=== PATIENT | female | born 1965 | race Caucasian/White ===

== ENCOUNTER → 2016-06-11 | Outpatient (CLI) | payer BC ==
[2016-06-11 07:48] LABS: Basophils # (A) 0.2 k/uL (0-0.2); Basophils % (A) 3 %; CH 29.9; CHCM 32.6; Eosinophils # (A) 0.1 k/uL (0-0.7); Eosinophils % (A) 2 %; HCT 39.7 % (34.0-46.0); HDW 2.15; HGB 12.9 gm/dL (11.4-16.0); Luc # (Auto) 0.23; Luc % (Auto) 4; Lymphocytes # (A) 2.6 k/uL (1.0-4.8); Lymphocytes % (A) 39 %; MCH 29.8 pg (25.0-35.0); MCHC 32.3 g/dL (31.0-37.0); MCV 92.1 fL (80.0-100.0); Mean Platelet Volume 7.4; Monocytes # (A) 0.3 k/uL (0-1.0); Monocytes % (A) 4 %; Neutrophils # (A) 3.2 k/uL (1.3-7.7); Neutrophils % (A) 48 %; RBC 4.32 m/uL (3.80-5.40); RDW 12.9 % (11.5-15.5); WBC 6.7 k/uL (3.8-10.6)
[2016-06-11 10:19] LABS: ALT 49 U/L (9-52); AST 26 U/L (14-36); Alkaline Phosphatase 71 U/L (38-126); Anion Gap 8 mmol/L; Blood Urea Nitrogen 18 mg/dL (7-17); Calcium 9.7 mg/dL (8.4-10.2); Carbon Dioxide 30 mmol/L (22-30); Chloride 105 mmol/L (98-107); Cholesterol 210 mg/dL (<200); Glucose 101 mg/dL (74-99); HDL Cholesterol 40 mg/dL (40-60); Non-African American GFR(MDRD) 58 (>60 ml/min/1.73 sqM); Potassium 4.5 mmol/L (3.5-5.1); Sodium 143 mmol/L (137-145); Total Bilirubin 0.5 mg/dL (0.2-1.3); Total Protein 7.2 g/dL (6.3-8.2); Triglycerides 113 mg/dL (<150)
== END ==
LOC: LABWHC1 07:08
PROVIDERS: ATTEND Internal Medicine
DX: E03.9 Hypothyroidism, unspecified (principal); I10 Essential (primary) hypertension; E78.2 Mixed hyperlipidemia
CPT/HCPCS: 36415; 80053; 80061; 84439; 84443; 84481; 85025; 86141

== ENCOUNTER → 2016-11-29 | Outpatient (CLI) | payer BC ==
[2016-11-29 10:19] LABS: ALT 55 U/L (9-52); AST 25 U/L (14-36); Alkaline Phosphatase 76 U/L (38-126); Anion Gap 8 mmol/L; Blood Urea Nitrogen 16 mg/dL (7-17); Calcium 9.6 mg/dL (8.4-10.2); Carbon Dioxide 28 mmol/L (22-30); Chloride 104 mmol/L (98-107); Cholesterol 193 mg/dL (<200); Glucose 101 mg/dL (74-99); HDL Cholesterol 29 mg/dL (40-60); Non-African American GFR(MDRD) >60 (>60 ml/min/1.73 sqM); Potassium 4.9 mmol/L (3.5-5.1); Sodium 140 mmol/L (137-145); Total Bilirubin 0.2 mg/dL (0.2-1.3); Total Protein 6.7 g/dL (6.3-8.2)
== END | disposition home or self-care (01) ==
LOC: LABWHC1 07:38
PROVIDERS: ATTEND Internal Medicine
DX: Z00.00 Encounter for general adult medical examination without abnormal findings (principal); E03.9 Hypothyroidism, unspecified; E78.4 Other hyperlipidemia; I10 Essential (primary) hypertension
CPT/HCPCS: 36415; 80053; 80061; 84443; 84481

== ENCOUNTER → 2017-05-31 | Outpatient (CLI) | payer BC ==
[2017-05-31 11:29] LABS: ALT 37 U/L (9-52); AST 25 U/L (14-36); Albumin 4.2 g/dL (3.5-5.0); Alkaline Phosphatase 73 U/L (38-126); Anion Gap 9 mmol/L; Blood Urea Nitrogen 12 mg/dL (7-17); Calcium 9.8 mg/dL (8.4-10.2); Carbon Dioxide 30 mmol/L (22-30); Chloride 103 mmol/L (98-107); Glucose 102 mg/dL (74-99); Potassium 5.1 mmol/L (3.5-5.1); Sodium 142 mmol/L (137-145); Total Bilirubin 0.5 mg/dL (0.2-1.3); Total Protein 7.2 g/dL (6.3-8.2)
== END | disposition home or self-care (01) ==
LOC: LABWHC1 10:05
PROVIDERS: ATTEND Internal Medicine
DX: E03.9 Hypothyroidism, unspecified (principal); I10 Essential (primary) hypertension
CPT/HCPCS: 36415; 80053; 84439; 84443; 84481

== ENCOUNTER → 2017-10-09 | Outpatient (CLI) | payer OTHER ==
--- NOTE | 2017-10-09 16:01 | XR ---
EXAMINATION TYPE: XR lumbar spine 2 or 3V DATE OF EXAM: 10/09/2017 CLINICAL HISTORY: Low back pain and right sacroiliac joint pain TECHNIQUE: Frontal and lateral images of the lumbar spine are obtained. COMPARISON: None FINDINGS: There are 5 lumbar type vertebral bodies identified. The lumbar spine shows satisfactory alignment. There is mild (approximately 10%) vertebral body height loss of the anterior superior endp late of L3. There is mild multilevel degenerative disc disease of the lumbar spine displayed is anter ior osteophytes, endplate sclerosis and facet arthropathy. Slight dextroscoliotic curvature is likely positional in nature. The overlying bowel is nondilated. IMPRESSION: 1. Mild age indeterminant compression deformity with vertebral body height loss of approximately 10% of the L3 vertebral body. Correlate for point tenderness to determine acuity. If there is further cli nical concern MRI could be performed to evaluate for bone marrow edema and determine chronicity. 2. Mild multilevel degenerative disc disease of the lumbar spine. No evidence of malalignment. A Yellow level critical message alert has been initiated for Dontae Snow DO via the [employer] Critical Results System on 10/09/2017 3:59 PM. This message alert has been sent to Dontae troncoso DO via the preferences provided by the clinician for the receipt of Radiology Critical Findings . Message ID [id number].
== END | disposition home or self-care (01) ==
LOC: RADXRMAIN 14:26
PROVIDERS: ATTEND Emergency Medicine
DX: M51.36 Other intervertebral disc degeneration, lumbar region (principal); M43.8X6 Other specified deforming dorsopathies, lumbar region
CPT/HCPCS: 72100

== ENCOUNTER → 2017-10-14 | Outpatient (CLI) | payer OTHER ==
--- NOTE | 2017-10-14 21:50 | MR ---
EXAMINATION TYPE: MR lumbar spine wo con DATE OF EXAM: 10/14/2017 COMPARISON: Lumbar spine x-ray October 09, 2017. HISTORY: Strain of back injury October 06 with low back pain going into left buttocks per patient. TECHNIQUE: Multiplanar, multisequence imaging of the lumbar spine is performed without IV contrast. FINDINGS: Sagittal images of the lumbar spine show vertebral body heights and alignment to appear sat isfactory. There is prominent Schmorl node superiorly anterior L3 endplate. Multilevel disc desiccati on is present. There is mild disc space narrowing L1-L2 and L5-S1 levels. Small posterior disc hernia tion is seen L5-S1 level on sagittal images. The conus medullaris is normal in position and signal en ding T12-L1 disc space. The bone marrow signal intensity is overall heterogeneous. No significant sp urring is present. Axial images show the T12-L1 level to appear within normal limits. Axial images at L1-L2 level shows mild broad disc bulge minimally effacing anterior thecal sac. Bilat eral neural foramina are patent. Axial images at L2-L3 level are felt within normal limits. Axial images at L3-L4 level show mild to moderate broad-based posterior disc protrusion minimally eff acing anterior thecal sac. There are mild facet degenerative changes and ligamentum flavum hypertroph y. There is mild bilateral anterior inferior neural foraminal narrowing at this level identified. Axial images at L4-L5 level show [id number] facet degenerative changes bilaterally. There is mi ld/moderate broad disc bulge mildly effaces the anterior thecal sac. There is mild right greater than left anterior inferior neural foraminal narrowing. Axial images at L5-S1 level show mild facet degenerative changes bilaterally. There is left paracentr al disc protrusion on axial image 4. This encroaches near central left S1 nerve on axial images 4 and 3 and sagittal image 4. Bilateral neural foramina are patent. Multiple dependent gallstones are seen in gallbladder. IMPRESSION: Multilevel degenerative changes in lumbar spine as detailed above, attention to L5-S1 lev el where disc herniation encroaches close on central left S1 nerve. Incidental gallstones noted.
== END | disposition home or self-care (01) ==
LOC: RADMRIMAIN 09:43
PROVIDERS: ATTEND Emergency Medicine
DX: M51.27 Other intervertebral disc displacement, lumbosacral region (principal); M47.817 Spondylosis without myelopathy or radiculopathy, lumbosacral region
CPT/HCPCS: 72148

== ENCOUNTER → 2018-01-09 | Outpatient (CLI) | payer BC ==
[2018-01-09 09:07] LABS: ALT 26 U/L (9-52); AST 18 U/L (14-36); Albumin 4.2 g/dL (3.5-5.0); Alkaline Phosphatase 69 U/L (38-126); Anion Gap 9 mmol/L; Blood Urea Nitrogen 21 mg/dL (7-17); Calcium 9.7 mg/dL (8.4-10.2); Carbon Dioxide 26 mmol/L (22-30); Chloride 106 mmol/L (98-107); Cholesterol 183 mg/dL (<200); Glucose 97 mg/dL (74-99); HDL Cholesterol 38 mg/dL (40-60); LDL Cholesterol,Calculated 129 mg/dL (0-99); Potassium 4.8 mmol/L (3.5-5.1); Sodium 141 mmol/L (137-145); Total Bilirubin 0.3 mg/dL (0.2-1.3); Total Protein 7.1 g/dL (6.3-8.2); Triglycerides 82 mg/dL (<150)
[2018-01-09 12:15] LABS: T4, Free (Free Thyroxine) 1.26 ng/dL (0.78-2.19)
== END ==
LOC: LABWHC1 06:31
PROVIDERS: ATTEND Internal Medicine
DX: Z00.00 Encounter for general adult medical examination without abnormal findings (principal); I10 Essential (primary) hypertension; E03.9 Hypothyroidism, unspecified; E78.49 Other hyperlipidemia
CPT/HCPCS: 36415; 80053; 80061; 82306; 84439; 84443; 84481

== ENCOUNTER → 2018-01-10 | Outpatient (CLI) | payer BC ==
[2018-01-10 08:21] LABS: Basophils # (A) 0.1 k/uL (0-0.2); Basophils % (A) 1 %; Eosinophils # (A) 0.2 k/uL (0-0.7); Eosinophils % (A) 2 %; HCT 42.1 % (34.0-46.0); HGB 13.5 gm/dL (11.4-16.0); Lymphocytes # (A) 3.5 k/uL (1.0-4.8); Lymphocytes % (A) 46 %; MCH 28.4 pg (25.0-35.0); MCV 88.8 fL (80.0-100.0); Mean Platelet Volume 6.9; Monocytes # (A) 0.4 k/uL (0-1.0); Monocytes % (A) 5 %; Neutrophils # (A) 3.5 k/uL (1.3-7.7); Neutrophils % (A) 45 %; Platelet Count 319 k/uL (150-450); RBC 4.74 m/uL (3.80-5.40); RDW 13.2 % (11.5-15.5); WBC 7.7 k/uL (3.8-10.6)
== END ==
LOC: LABWHC1 06:31
PROVIDERS: ATTEND Internal Medicine
DX: I10 Essential (primary) hypertension (principal); E03.9 Hypothyroidism, unspecified; M85.80 Other specified disorders of bone density and structure, unspecified site
CPT/HCPCS: 36415; 85025

== ENCOUNTER → 2018-12-31 | Outpatient (CLI) | payer BC ==
[2018-12-31 15:49] LABS: ALT 11 U/L (8-44); AST 12 U/L (13-35); African American GFR (CKD) 113.8 (60.0-200.0); Albumin/Globulin Ratio 2.71 (1.60-3.17); Alkaline Phosphatase 61 U/L (41-126); BUN/Creat Ratio 25.71 Ratio (12.00-20.00); Calcium 9.2 mg/dL (8.7-10.3); Carbon Dioxide 29.4 mmol/L (21.6-31.8); Chloride 105 mmol/L (96-109); Chol/HDL Ratio 4.45; Cholesterol 169 mg/dL (0-200); Globulin 1.4 g/dL (1.6-3.3); Glucose 103 mg/dL (70-110); LDL Cholesterol,Calculated 118.6 mg/dL (0.0-131.0); Potassium 5.3 mmol/L (3.5-5.5); Sodium 140 mmol/L (135-145); Total Bilirubin 0.3 mg/dL (0.3-1.2); Total Protein 5.2 g/dL (6.2-8.2)
== END | disposition home or self-care (01) ==
LOC: LABWHC1 10:09
PROVIDERS: ATTEND Internal Medicine
DX: E03.9 Hypothyroidism, unspecified (principal); E55.9 Vitamin D deficiency, unspecified; R53.83 Other fatigue
CPT/HCPCS: 36415; 80053; 80061; 82306; 84439; 84443; 84481

== ENCOUNTER → 2019-08-23 | Outpatient (CLI) | payer BC ==
[2019-08-23 12:54] LABS: HCT 42.2 % (34.0-46.0); HGB 13.5 gm/dL (11.4-16.0); MCH 29.9 pg (25.0-35.0); MCHC 32.1 g/dL (31.0-37.0); MCV 93.3 fL (80.0-100.0); Mean Platelet Volume 7.7; Platelet Count 304 k/uL (150-450); RBC 4.52 m/uL (3.80-5.40); WBC 5.8 k/uL (3.8-10.6)
[2019-08-23 19:49] LABS: African American GFR (CKD) 96.9 (60.0-200.0); Albumin 3.8 g/dL (3.80-4.90); Albumin/Globulin Ratio 2.53 (1.60-3.17); Anion Gap 5.1 mmol/L (4.00-12.00); BUN/Creat Ratio 16.25 Ratio (12.00-20.00); Carbon Dioxide 27.9 mmol/L (21.6-31.8); Chol/HDL Ratio 4.13; Globulin 1.5 g/dL (1.6-3.3); LDL Cholesterol,Calculated 130.6 mg/dL (0.0-131.0); Non-African American GFR(CKD) 83.6 (60.0-200.0); Potassium 5.1 mmol/L (3.5-5.5); Total Bilirubin 0.4 mg/dL (0.2-1.2); Total Protein 5.3 g/dL (6.2-8.2); VLDL Calculation 13.4 mg/dL (5.00-40.00)
[2019-08-23 19:56] LABS: T4, Free (Free Thyroxine) 1.3 ng/dL (0.80-1.80)
== END | disposition home or self-care (01) ==
LOC: LABWHC1 10:08
PROVIDERS: ATTEND Internal Medicine
DX: Z00.00 Encounter for general adult medical examination without abnormal findings (principal); E03.9 Hypothyroidism, unspecified; I10 Essential (primary) hypertension
CPT/HCPCS: 36415; 80053; 80061; 82306; 84439; 84443; 84481; 85027

== ENCOUNTER → 2019-10-14 | Outpatient (CLI) | payer BC ==
--- NOTE | 2019-10-14 10:32 | US ---
EXAMINATION TYPE: US venous doppler duplex LE LT DATE OF EXAM: 10/14/2019 9:35 AM COMPARISON: NONE CLINICAL HISTORY: M79.662 pain in left lower limb, R22.42 swelling,. Pt states left leg swelling SIDE PERFORMED: Left TECHNIQUE: The lower extremity deep venous system is examined utilizing real time linear array sonog shalonda with graded compression, doppler sonography and color-flow sonography. VESSELS IMAGED: External Iliac Vein (EIV) Common Femoral Vein Deep Femoral Vein Greater Saphenous Vein * Femoral Vein Popliteal Vein Small Saphenous Vein * Proximal Calf Veins (* superficial vessels) Left Leg: Negative for DVT Results called to Diamante at 's office at time of exam IMPRESSION: No evidence for DVT.
== END | disposition home or self-care (01) ==
LOC: RADUSWWP 09:20
PROVIDERS: ATTEND Internal Medicine
DX: I82.402 Acute embolism and thrombosis of unspecified deep veins of left lower extremity (principal); M79.662 Pain in left lower leg; R22.42 Localized swelling, mass and lump, left lower limb

== ENCOUNTER → 2019-10-30 | Outpatient (CLI) | payer BC ==
--- NOTE | 2019-10-30 14:32 | XR ---
EXAMINATION TYPE: XR ankle complete LT DATE OF EXAM: 10/30/2019 COMPARISON: None HISTORY: Pain swelling TECHNIQUE: Three-view left ankle FINDINGS: Mild diffuse soft tissue swelling may be present. The ankle mortise appears intact. No acut e fracture or dislocation is evident. Calcaneal heel spurs are present. IMPRESSION: 1. No acute osseous abnormality. 2. Mild soft tissue swelling. 3. Follow-up exams can be performed 7-10 days from acute trauma for continued pain
--- NOTE | 2019-10-30 14:33 | XR ---
EXAMINATION TYPE: XR foot complete LT DATE OF EXAM: 10/30/2019 COMPARISON: None HISTORY: Swelling TECHNIQUE: Three-view left foot FINDINGS: Plantar and Achilles tendon calcaneal heel spurs are present. No acute fractures are eviden t. Mild soft tissue swelling may be over the dorsum of the foot and possibly at the ankle diffusely. Joint spaces appear preserved. IMPRESSION: 1. Soft tissue swelling dorsum of the foot and ankle
== END | disposition home or self-care (01) ==
LOC: RADXRMAIN 08:53
PROVIDERS: ATTEND Internal Medicine
DX: M79.89 Other specified soft tissue disorders (principal); R60.0 Localized edema

== ENCOUNTER → 2020-09-21 | Outpatient (CLI) | payer BC ==
[2020-09-21 12:36] LABS: African American GFR (CKD) 96.2 (60.0-200.0); Albumin 4.3 g/dL (3.80-4.90); Albumin/Globulin Ratio 1.79 (1.60-3.17); Anion Gap 5.6 mmol/L (4.00-12.00); BUN/Creat Ratio 17.5 Ratio (12.00-20.00); Calcium 9.3 mg/dL (8.7-10.3); Carbon Dioxide 29.4 mmol/L (21.6-31.8); Globulin 2.4 g/dL (1.6-3.3); LDL Cholesterol,Calculated 121.6 mg/dL (0.0-131.0); Potassium 4.8 mmol/L (3.5-5.5); Total Bilirubin 0.6 mg/dL (0.2-1.2); Total Protein 6.7 g/dL (6.2-8.2); VLDL Calculation 18.4 mg/dL (5.00-40.00)
[2020-09-21 12:43] LABS: T4, Free (Free Thyroxine) 1.2 ng/dL (0.80-1.80)
[2020-09-21 17:17] LABS: Hemoglobin A1C 5.6 % (4.0-6.0)
== END | disposition home or self-care (01) ==
LOC: LABWHC1 07:03
PROVIDERS: ATTEND Nurse Practitioner Adult Health
DX: Z00.00 Encounter for general adult medical examination without abnormal findings (principal); E03.9 Hypothyroidism, unspecified; E55.9 Vitamin D deficiency, unspecified; I10 Essential (primary) hypertension; R73.9 Hyperglycemia, unspecified
CPT/HCPCS: 36415; 80053; 80061; 82306; 83036; 84439; 84443; 84481

== ENCOUNTER → 2021-05-11 | Outpatient (CLI) | payer BC ==
[2021-05-11 18:42] LABS: T4, Free (Free Thyroxine) 1.39 ng/dL (0.800-1.800)
== END | disposition home or self-care (01) ==
LOC: LABWHC1 12:24
PROVIDERS: ATTEND Nurse Practitioner Adult Health
DX: E03.9 Hypothyroidism, unspecified (principal)
CPT/HCPCS: 36415; 84439; 84443; 84481

== ENCOUNTER → 2021-09-22 | Outpatient (CLI) | payer BC ==
[2021-09-22 14:20] LABS: Basophils # (A) 0.04 X 10*3/uL (0.00-0.10); Basophils % (A) 0.7 %; Eosinophils # (A) 0.12 X 10*3/uL (0.04-0.35); Eosinophils % (A) 2.1 %; HCT 41.3 % (37.2-46.3); HGB 12.6 g/dL (12.0-15.0); Immature Grans, Automated 0.2 %; Lymphocytes # (A) 2.44 X 10*3/uL (0.90-5.00); Lymphocytes % (A) 42.7 %; MCH 27.9 pg (27.0-32.0); MCHC 30.5 g/dL (32.0-37.0); MCV 91.6 fL (80.0-97.0); Mean Platelet Volume 10.6 fL (9.5-12.2); Monocytes # (A) 0.33 X 10*3/uL (0.20-1.00); Monocytes % (A) 5.8 %; NRBC Per 100 WBC 0 /100 WBCS (0.0-0.0); Neutrophils # (A) 2.77 X 10*3/uL (1.80-7.70); Neutrophils % (A) 48.5 %; Platelet Count 310 X 10*3/uL (140-440); RBC 4.51 X 10*6/uL (4.10-5.20); RDW 13.2 % (11.5-14.5); WBC 5.71 X 10*3/uL (4.50-10.00)
[2021-09-22 14:47] LABS: ALT 22 U/L (8-44); AST 16 U/L (13-35); African American GFR (CKD) 112.3 (60.0-200.0); Albumin 4.4 g/dL (3.8-4.9); Albumin/Globulin Ratio 1.91 (1.60-3.17); Alkaline Phosphatase 89 U/L (41-126); BUN/Creat Ratio 19.86 Ratio (12.00-20.00); Blood Urea Nitrogen 13.9 mg/dL (9.0-27.0); Calcium 9.5 mg/dL (8.7-10.3); Carbon Dioxide 28.1 mmol/L (20.0-27.5); Chloride 104 mmol/L (96-109); Chol/HDL Ratio 4.99 Ratio; Globulin 2.3 g/dL (1.6-3.3); Glucose 107 mg/dL (70-110); LDL Cholesterol,Calculated 133.6 mg/dL (0.0-131.0); Non-African American GFR(CKD) 96.9 (60.0-200.0); Potassium 5.1 mmol/L (3.5-5.5); Sodium 140 mmol/L (135-145); Total Protein 6.7 g/dL (6.2-8.2); VLDL Calculation 15.12 mg/dL (5.00-40.00)
[2021-09-22 15:39] LABS: Appearance,Urine Clear (Clear); Bilirubin,Urine Negative (Negative); Blood,Urine Negative (Negative); Color,Urine Yellow (Yellow); Ketones,Urine Negative (Negative); Nitrite,Urine Negative (Negative); Specific Gravity,Urine 1.025 (1.001-1.030); Urobilinogen,Urine 0.2 (0.2,1.0)
[2021-09-22 15:43] LABS: Bacteria,Urine None Seen /HPF (None Seen)
== END | disposition home or self-care (01) ==
LOC: LABWHC1 08:56
PROVIDERS: ATTEND Family Medicine
DX: I10 Essential (primary) hypertension (principal); E03.9 Hypothyroidism, unspecified; G47.00 Insomnia, unspecified
CPT/HCPCS: 36415; 80053; 80061; 81001; 83036; 84439; 84443; 85025

== ENCOUNTER → 2022-04-23 | Outpatient (CLI) | payer BC | END | disposition home or self-care (01) | LOC: LABWHC1 10:56 | PROVIDERS: ATTEND Family Medicine | DX: E03.9 Hypothyroidism, unspecified (principal); R73.01 Impaired fasting glucose | CPT/HCPCS: 36415; 83036; 84443 ==

== ENCOUNTER → 2022-07-22 | Outpatient (CLI) | payer BC | END | disposition home or self-care (01) | LOC: LABWHC1 07:27 | PROVIDERS: ATTEND Family Medicine | DX: R73.01 Impaired fasting glucose (principal) | CPT/HCPCS: 36415; 83036 ==

== ENCOUNTER → 2022-10-28 | Outpatient (CLI) | payer BC ==
[2022-10-28 15:04] LABS: Blood Urea Nitrogen 14.4 mg/dL (9.0-27.0); Calcium 9.9 mg/dL (8.7-10.3); Carbon Dioxide 23.5 mmol/L (21.6-31.8); Chloride 104 mmol/L (96-109); Chol/HDL Ratio 4.65 Ratio; Glucose 101 mg/dL (70-110); LDL Cholesterol,Calculated 124.3 mg/dL (0.0-131.0); Potassium 4.4 mmol/L (3.5-5.5); Sodium 139 mmol/L (135-145); VLDL Calculation 14.56 mg/dL (5.00-40.00)
== END | disposition home or self-care (01) ==
LOC: LABWHC1 08:03
PROVIDERS: ATTEND Family Medicine
DX: I10 Essential (primary) hypertension (principal); E11.9 Type 2 diabetes mellitus without complications
CPT/HCPCS: 36415; 80048; 80061; 83036

== ENCOUNTER 2023-07-06 20:51 | Observation (INO) | payer BC ==
--- NOTE | 2023-07-06 21:15 | ED ---
Arrhythmia/Palpitations HPI - General Chief Complaint: Arrhythmia/Palpitations Stated Complaint: Tachycardia Time Seen by Provider: 07/06/23 21:14 Source: patient, EMS Mode of arrival: EMS Limitations: no limitations - History of Present Illness Initial Comments: Kaylene is a 57-year-old female with a history of SVT who presents to the emergency department today for evaluation of tachycardia. Patient states that over the past couple weeks she has noticed some episodes of tachycardia seem to happen more in the evenings. She has been taking extra half dose of atenolol nightly due to these. Patient states that tonight she had palpitations heart rate in the 160s to 170s, she took atenolol she tried vagal maneuvers and then resting however the tachycardia persisted it did improve from the 160s and 170s to the 140s but did not resolve so she came to the ER for evaluation. Patient has no history of A-fib or other cardiac disease. She follows with cardiology on an annual basis last echo was 2 years ago. States she is been feeling more fatigued lately, she does get short of breath when she is having palpitations. No chest pain. - Related Data Allergies Allergy/AdvReac Type Severity Reaction Status Date / Time sulfamethoxazole Allergy Rash/Hives Verified 07/06/23 21:05 [From Bactrim] trimethoprim [From Bactrim] Allergy Rash/Hives Verified 07/06/23 21:05 Review of Systems ROS Statement: Those systems with pertinent positive or pertinent negative responses have been documented in the HPI. ROS Other: All systems not noted in ROS Statement are negative. Past Medical History Past Medical History: Supraventricular Tachycardia (SVT) History of Any Multi-Drug Resistant Organisms: None Reported Past Surgical History: Hysterectomy Past Psychological History: No Psychological Hx Reported Smoking Status: Never smoker Past Alcohol Use History: None Reported Past Drug Use History: Marijuana General Exam - General Exam Comments Initial Comments: Physical Exam GENERAL: Patient is well-developed and well-nourished. Patient is nontoxic and well-hydrated and is in no distress. HENT: Normocephalic, Atraumatic. EYES: PERRL, EOMI PULMONARY: Unlabored respirations. CARDIOVASCULAR: Tachycardic, regular ABDOMEN: Non-distended SKIN: No rashes or bruising : Deferred NEUROLOGIC: Alert and oriented Normal speech Normal gait MUSCULOSKELETAL: Moving all extremities with no apparent injury PSYCHIATRIC: No SI/HI Limitations: no limitations Course Vital Signs 07/06/23 07/06/23 07/07/23 20:53 23:01 00:00 Temperature 98.4 F Pulse Rate 141 H 87 76 Pulse Rate [ Sdv Pilot/Navigator/Dds Operator ] Respiratory 16 18 18 Rate Blood Pressure 104/73 132/68 120/87 Blood Pressure [Right Arm Supine] O2 Sat by Pulse 96 96 97 Oximetry 07/07/23 07/07/23 07/07/23 01:00 02:00 02:40 Temperature Pulse Rate 73 70 70 Pulse Rate [ Sdv Pilot/Navigator/Dds Operator ] Respiratory 18 18 18 Rate Blood Pressure 109/65 103/65 104/66 Blood Pressure [Right Arm Supine] O2 Sat by Pulse 97 97 97 Oximetry 07/07/23 02:55 Temperature 97.9 F Pulse Rate Pulse Rate [ 82 Sdv Pilot/Navigator/Dds Operator ] Respiratory 16 Rate Blood Pressure Blood Pressure 129/71 [Right Arm Supine] O2 Sat by Pulse 98 Oximetry EKG Findings - EKG Comments: EKG Findings:: EG interpreted by me, EKG obtained at 2108, EKG with a rate of 141 narrow complex appears to be quite regular this is consistent with an a flutter with a 2-1 block. There are some mild ST depressions no acute ST elevations likely demand ischemia with no evidence of acute infarction. Repeat EKG interpreted by me repeat EKG was obtained due to change in rhythm, repeat EKG obtained at 2259 rate is 86 rhythm is sinus there are no acute ST elevations or depressions no evidence of ischemia or infarction. Medical Decision Making - Medical Decision Making Was pt. sent in by a medical professional or institution (, PA, COMMERCIAL LINES ACCOUNT EXECUTIVE, urgent ca re, hospital, or senior living...) When possible be specific @ -No Did you speak to anyone other than the patient for history (EMS, parent, family, police, friend...)? What history was obtained from this source @ -No Did you review nursing and triage notes (agree or disagree)? Why? @ -I reviewed and agree with nursing and triage notes Were old charts reviewed (outside hosp., previous admission, EMS record, old EKG, old radiological studies, urgent care reports/EKG's, senior living records)? Report findings @ -No old charts were reviewed Differential Diagnosis (chest pain, altered mental status, abdominal pain women, abdominal pain men, vaginal bleeding, weakness, fever, dyspnea, syncope, headache, dizziness, GI bleed, back pain, seizure, CVA, palpatations, mental health)? @ -Differential Palpitations Ventricular arrhythmias, atrial arrhythmias, myocardial infarction, anemia, thyr otoxicosis, electrolyte imbalance, hypokalemia, pulmonary embolism, pulmonary disease, drugs, alcohol, anxiety, stress.... This is not meant to be an all-inclusive list. EKG interpreted by me (3pts min.). @ -As above X-rays interpreted by me (1pt min.). @ -Chest x-ray with no focal consolidations or pleural effusions CT interpreted by me (1pt min.). @ -None done U/S interpreted by me (1pt. min.). @ -None done What testing was considered but not performed or refused? (CT, X-rays, U/S, labs)? Why? @ -None What meds were considered but not given or refused? Why? @ -Resume and heparin were ordered however patient converted back to sinus rhythm and did not require these medications Did you discuss the management of the patient with other professionals (professionals i.e. , PA, COMMERCIAL LINES ACCOUNT EXECUTIVE, lab, RT, psych nurse, drug abuse social worker, stationary equipment mechanic, teacher, aoc plans intelligence officer chief, caser shoe parts)? Give summary @ -No Was smoking cessation discussed for >3mins.? @ -No Was critical care preformed (if so, how long)? @ -No Were there social determinants of health that impacted care today? How? (Homelessness, low income, unemployed, alcoholism, drug addiction, transportation, low edu. Level, literacy, decrease access to med. care, group home, rehab)? @ -No Was there de-escalation of care discussed even if they declined (Discuss DNR or withdrawal of care, Hospice)? DNR status @ -No What co-morbidities impacted this encounter? (DM, HTN, Smoking, COPD, CAD, Cancer, CVA, ARF, Chemo, Hep., AIDS, mental health diagnosis, sleep apnea, morbid obesity)? @ -None Was patient admitted / discharged? Hospital course, mention meds given and route, prescriptions, significant lab abnormalities, going to OR and other pertinent info. @ -Admit 57-year-old female presenting with palpitation she has a history of SVT but tod ay appears to be in A-fib with RVR. Labs were obtained and are unremarkable. Heparin and Cardizem were ordered however patient converted back to sinus rhythm did not require these medications. Patient care was discussed with Dr. Sharma who agrees with plan for observation and cardiology consult due to new onset A- fib. Undiagnosed new problem with uncertain prognosis? @ -No Drug Therapy requiring intensive monitoring for toxicity (Heparin, Nitro, Insulin, Cardizem)? @ -No Were any procedures done? @ -No Diagnosis/symptom? @ -New onset A-fib Acute, or Chronic, or Acute on Chronic? @ -Acute Uncomplicated (without systemic symptoms) or Complicated (systemic symptoms)? @ -Default Side effects of treatment? @ -No Exacerbation, Progression, or Severe Exacerbation? @ -No Poses a threat to life or bodily function? How? (Chest pain, [place], [place], pneumonia, PE, COPD, DKA, ARF, appy, cholecystitis, CVA, Diverticulitis, Homicidal, Suicidal, threat to staff... and all critical care pts) @ -Unlikely - Lab Data Result diagrams: 07/07/23 04:28 07/06/23 21:14 Lab Results 07/06/23 07/06/23 07/06/23 Range/Units 21:14 21:14 21:14 WBC 11.6 H (3.8-10.6) k/uL RBC 4.47 (3.80-5.40) m/uL Hgb 13.1 (11.4-16.0) gm/dL Hct 41.2 (34.0-46.0) % MCV 92.1 (80.0-100.0) fL MCH 29.2 (25.0-35.0) pg MCHC 31.7 (31.0-37.0) g/dL RDW 13.0 (11.5-15.5) % Plt Count 312 (150-450) k/uL MPV 7.8 Neutrophils % 82 % Lymphocytes % 14 % Monocytes % 2 % Eosinophils % 1 % Basophils % 1 % Neutrophils # 9.5 H (1.3-7.7) k/uL Lymphocytes # 1.6 (1.0-4.8) k/uL Monocytes # 0.3 (0-1.0) k/uL Eosinophils # 0.1 (0-0.7) k/uL Basophils # 0.1 (0-0.2) k/uL PT 10.7 (10.0-12.5) sec INR 1.0 (<1.2) APTT 21.7 L (22.0-30.0) sec Sodium 137 (137-145) mmol/L Potassium 4.9 (3.5-5.1) mmol/L Chloride 106 (98-107) mmol/L Carbon Dioxide 21 L (22-30) mmol/L Anion Gap 10 mmol/L BUN 18 H (7-17) mg/dL Creatinine 0.78 (0.52-1.04) mg/dL Est GFR (CKD-EPI)AfAm >90 (>60 ml/min/1.73 sqM) Est GFR (CKD-EPI)NonAf 84 (>60 ml/min/1.73 sqM) Glucose 136 H (74-99) mg/dL Calcium 9.2 (8.4-10.2) mg/dL Magnesium 1.9 (1.6-2.3) mg/dL Total Bilirubin 0.4 (0.2-1.3) mg/dL AST 20 (14-36) U/L ALT 20 (4-34) U/L Alkaline Phosphatase 77 (38-126) U/L Troponin I (0.000-0.034) ng/mL Total Protein 7.1 (6.3-8.2) g/dL Albumin 4.1 (3.5-5.0) g/dL TSH 2.240 (0.465-4.680) mIU/L 07/06/23 Range/Units 21:14 WBC (3.8-10.6) k/uL RBC (3.80-5.40) m/uL Hgb (11.4-16.0) gm/dL Hct (34.0-46.0) % MCV (80.0-100.0) fL MCH (25.0-35.0) pg MCHC (31.0-37.0) g/dL RDW (11.5-15.5) % Plt Count (150-450) k/uL MPV Neutrophils % % Lymphocytes % % Monocytes % % Eosinophils % % Basophils % % Neutrophils # (1.3-7.7) k/uL Lymphocytes # (1.0-4.8) k/uL Monocytes # (0-1.0) k/uL Eosinophils # (0-0.7) k/uL Basophils # (0-0.2) k/uL PT (10.0-12.5) sec INR (<1.2) APTT (22.0-30.0) sec Sodium (137-145) mmol/L Potassium (3.5-5.1) mmol/L Chloride (98-107) mmol/L Carbon Dioxide (22-30) mmol/L Anion Gap mmol/L BUN (7-17) mg/dL Creatinine (0.52-1.04) mg/dL Est GFR (CKD-EPI)AfAm (>60 ml/min/1.73 sqM) Est GFR (CKD-EPI)NonAf (>60 ml/min/1.73 sqM) Glucose (74-99) mg/dL Calcium (8.4-10.2) mg/dL Magnesium (1.6-2.3) mg/dL Total Bilirubin (0.2-1.3) mg/dL AST (14-36) U/L ALT (4-34) U/L Alkaline Phosphatase (38-126) U/L Troponin I <0.012 (0.000-0.034) ng/mL Total Protein (6.3-8.2) g/dL Albumin (3.5-5.0) g/dL TSH (0.465-4.680) mIU/L Disposition Clinical Impression: Atrial fibrillation Disposition: ADMITTED IP TO THIS HOSP Condition: Fair
[2023-07-06 21:25] LABS: Basophils # (A) 0.1 k/uL (0-0.2); Basophils % (A) 1 %; Eosinophils # (A) 0.1 k/uL (0-0.7); Eosinophils % (A) 1 %; HCT 41.2 % (34.0-46.0); HGB 13.1 gm/dL (11.4-16.0); Lymphocytes # (A) 1.6 k/uL (1.0-4.8); Lymphocytes % (A) 14 %; MCH 29.2 pg (25.0-35.0); MCHC 31.7 g/dL (31.0-37.0); MCV 92.1 fL (80.0-100.0); Mean Platelet Volume 7.8; Monocytes # (A) 0.3 k/uL (0-1.0); Monocytes % (A) 2 %; Neutrophils # (A) 9.5 k/uL (1.3-7.7); Neutrophils % (A) 82 %; Platelet Count 312 k/uL (150-450); RBC 4.47 m/uL (3.80-5.40); WBC 11.6 k/uL (3.8-10.6)
[2023-07-06 21:34] LABS: ALT 20 U/L (4-34); AST 20 U/L (14-36); African American GFR (CKD) >90 (>60 ml/min/1.73 sqM); Albumin 4.1 g/dL (3.5-5.0); Alkaline Phosphatase 77 U/L (38-126); Anion Gap 10 mmol/L; Blood Urea Nitrogen 18 mg/dL (7-17); Calcium 9.2 mg/dL (8.4-10.2); Carbon Dioxide 21 mmol/L (22-30); Chloride 106 mmol/L (98-107); Glucose 136 mg/dL (74-99); Magnesium 1.9 mg/dL (1.6-2.3); Non-African American GFR(CKD) 84 (>60 ml/min/1.73 sqM); Potassium 4.9 mmol/L (3.5-5.1); Sodium 137 mmol/L (137-145); Total Bilirubin 0.4 mg/dL (0.2-1.3); Total Protein 7.1 g/dL (6.3-8.2)
[2023-07-06 21:39] LABS: Prothrombin Time 10.7 sec (10.0-12.5)
[2023-07-06 21:46] LABS: Partial Thromboplastin Time 21.7 sec (22.0-30.0)
--- NOTE | 2023-07-06 22:02 | XR ---
EXAMINATION: XR chest 2V: 07/06/2023 9:53 PM CLINICAL INDICATION: dysrhythmia TECHNIQUE: Departmental protocol COMPARISON: 11/18/2011 FINDINGS: The lungs are clear. The pleural spaces are negative. The cardiac silhouette is not enlarged. The skeletal structures and soft tissues are negative for acute findings. IMPRESSION: No acute radiographic process.
[2023-07-06] MEDS ORDERED: HEPARIN SODIUM 1,000 UN/ML (10ML VL) IV PRN (22:09)
[2023-07-06] MEDS ORDERED: DILTIAZEM 125 MG in SODIUM CHLORIDE 0.9% 100 ML IV SCH (22:15)
[2023-07-07] MEDS: HEPARIN SOD,PORK IN 0.45% NACL 25,000 UNIT in 0.45% NACL 1 250ML.BAG IV SCH (02:11)
[2023-07-07] MEDS: DILTIAZEM DRIP BOLUS FROM BAG 1 MG SOLN IV ONE (02:11)
[2023-07-07] MEDS: HEPARIN SODIUM 1,000 UN/ML (10ML VL) IV ONE (02:12)
[2023-07-07] MEDS ORDERED: DEXTROSE 50% SYRINGE 50 ML IVP PRN ×2 (04:25)
--- NOTE | 2023-07-07 04:32 | P.HPIM ---
History of Present Illness H&P Date: 07/07/23 Chief Complaint: Palpitations 57-year-old female with diabetes, history of SVT, hypertension Patient coming into the hospital due to feeling dizzy and lightheaded every time she tries to walk. She reports that she has a history of SVT and usually she will get small attacks that she can abort by vagal maneuvers this time she was having some palpitations for which she did vagal maneuvers and she thought it was gone however every time she tried to get up or walk she will feel dizzy lightheaded for which she got concerned and decided to come into the hospital for evaluation She denies any chest pain trouble breathing fevers chills coughing or upper respiratory infection symptoms denies any nausea vomiting abdominal pain GI bleeding changes in bowel or urinary habits Patient has poor insight of her overall health and when asked she denied any past medical history however later during the conversation she started mentioning medications that it is related to thyroid disease and hypertension. And then the nurse updated me that she also takes metformin which is most likely for diabetes however when patient is asked directly about these diseases she denies any past medical history. Patient denies any tobacco smoking illicit drugs or heavy alcohol Denies any history of blood clots. She is not on blood thinners or any antiplatelets. In the ED patient was started on heparin drip and Cardizem drip and was admitted for further care at time of my evaluation patient has converted to sinus rhythm review of systems Pertinent positives as noted in HPI. All other systems were reviewed and are negative on exam Constitutional: No acute distress, conversant, pleasant Eyes: Anicteric sclerae, moist conjunctiva, Pupils equal round reactive to light ENMT: NC/AT Oropharynx clear, no erythema, or exudates Neck: Supple, no masses, or JVD No carotid bruits No thyromegaly Lungs: Clear to auscultation Clear to percussion Normal respiratory effort, no accessory muscle use Cardiovascular: Heart regular in rate and rhythm, No murmurs, gallops, or rubs No peripheral edema Abdominal: Soft Nontender, no guarding, rebound or rigidity Abdomen moving with respiration Normoactive bowel sounds Extremities: No digital cyanosis No clubbing Pedal pulses intact and symmetrical Radial pulses intact and symmetrical No calf tenderness Psychiatric: Alert and oriented to person, place and time Appropriate affect fair judgement Neuro Muscles Strength 5/5 in all 4 extremities Sensation to light touch grossly present throughout Cranial nerves II-XII grossly intact Past Medical History Past Medical History: Supraventricular Tachycardia (SVT) History of Any Multi-Drug Resistant Organisms: None Reported Past Surgical History: Hysterectomy Past Psychological History: No Psychological Hx Reported Smoking Status: Never smoker Past Alcohol Use History: None Reported Past Drug Use History: Marijuana Medications and Allergies Allergies Allergy/AdvReac Type Severity Reaction Status Date / Time sulfamethoxazole Allergy Rash/Hives Verified 07/06/23 21:05 [From Bactrim] trimethoprim [From Bactrim] Allergy Rash/Hives Verified 07/06/23 21:05 Physical Exam Vitals: Vital Signs Temp Pulse Pulse Resp BP BP Pulse Ox 07/07/23 02:55 97.9 F 82 16 129/71 98 07/07/23 02:40 70 18 104/66 97 07/07/23 02:00 70 18 103/65 97 07/07/23 01:00 73 18 109/65 97 07/07/23 00:00 76 18 120/87 97 07/06/23 23:01 87 18 132/68 96 07/06/23 20:53 98.4 F 141 H 16 104/73 96 Intake and Output 07/06/23 07/06/23 07/07/23 14:59 22:59 06:59 Other: Weight 133.81 kg 133.81 kg Results CBC & Chem 7: 07/06/23 21:14 07/06/23 21:14 Labs: Abnormal Lab Results - Last 24 Hours (Table) 07/06/23 07/06/23 07/06/23 Range/Units 21:14 21:14 21:14 WBC 11.6 H (3.8-10.6) k/uL Neutrophils # 9.5 H (1.3-7.7) k/uL APTT 21.7 L (22.0-30.0) sec Carbon Dioxide 21 L (22-30) mmol/L BUN 18 H (7-17) mg/dL Glucose 136 H (74-99) mg/dL Thrombosis Risk Factor Assmnt - Choose All That Apply Any of the Below Risk Factors Present?: Yes Each Factor Represents 1 point: Age 41-60 years Other Risk Factors: No Other congenital or acquired thrombophilia - If yes, enter type in comment: No Thrombosis Risk Factor Assessment Total Risk Factor Score: 1 Thrombosis Risk Factor Assessment Level: Low Risk Assessment and Plan Assessment: 57-year-old female with history of SVT coming in for palpitations and dizziness I discussed the case with ED doctor and accepted the admission for A-fib with RVR with anticipated length of stay more than 2 midnights A-fib with RVR [id number] score equals 3 (diabetes mellitus, female, hypertension), patient would benefit from anticoagulation Continue with heparin drip Check echocardiogram Cardiology consult Cardiac monitoring Monitor vital signs BUN 18 creatinine 0.78 sodium 137 potassium 4.9 magnesium 1.9 Troponins negative TSH 2.2 Discontinue Cardizem drip, patient converted to sinus rhythm Continue with atenolol Chest x-ray no acute cardiopulmonary process Diabetes mellitus Hold metformin Insulin sliding scale Hypertension Continue with lisinopril Hypothyroid Continue Synthroid Full code DVT prophylaxis on heparin drip for A-fib
[2023-07-07 04:57] LABS: Basophils # (A) 0.1 k/uL (0-0.2); Basophils % (A) 1 %; Eosinophils # (A) 0.1 k/uL (0-0.7); Eosinophils % (A) 1 %; HCT 38.2 % (34.0-46.0); Lymphocytes # (A) 3.4 k/uL (1.0-4.8); Lymphocytes % (A) 37 %; MCH 29.1 pg (25.0-35.0); MCHC 31.4 g/dL (31.0-37.0); MCV 92.8 fL (80.0-100.0); Mean Platelet Volume 7.3; Monocytes # (A) 0.4 k/uL (0-1.0); Monocytes % (A) 5 %; Neutrophils # (A) 5.1 k/uL (1.3-7.7); Neutrophils % (A) 55 %; Platelet Count 280 k/uL (150-450); RBC 4.12 m/uL (3.80-5.40); WBC 9.2 k/uL (3.8-10.6)
[2023-07-07 05:15] LABS: Partial Thromboplastin Time 24.8 sec (22.0-30.0); Prothrombin Time 11.2 sec (10.0-12.5)
[2023-07-07 06:09] LABS: Glucose,Whole Blood 109 mg/dL (70-110)
[2023-07-07] MEDS: INSULIN ASPART (NovoLOG) 100 UNIT/ML VIAL SQ SCH (06:09)
[2023-07-07] MEDS: LEVOTHYROXINE 125 MCG TAB PO SCH (06:17)
[2023-07-07] MEDS ORDERED: METOPROLOL TARTRATE 25 MG TAB PO SCH (09:00)
[2023-07-07] MEDS: lisinopriL 10 MG TAB PO SCH (09:37)
[2023-07-07] MEDS: atenoloL 25 MG TAB PO SCH (09:37)
[2023-07-07] MEDS: APIXABAN 5 MG TAB PO SCH (09:37)
--- NOTE | 2023-07-07 10:39 | P.CRDCN ---
History of Present Illness History of present illness: HISTORY OF PRESENT ILLNESS: This is a 57-year-old female with a past medical history significant for SVT, hypertension, hypothyroidism, and diabetes. Patient follows with Dr. Becker in [place]. We have been asked to see the patient in consultation for atrial fibrillation. Patient examined at the bedside. Patient states yesterday she was having another episode of her SVT. She reports having palpitations. She denied having chest pain or shortness of breath. Patient came to the emergency room. She was found to be in a flutter with RVR. She subsequently converted to sinus mechanism. And is maintaining sinus mechanism this morning. Vital signs are stable. She is a non-smoker. She denies any alcohol use. Denies any drug use including marijuana. She states her mother has a history of atrial fibrillation. Denies any family history of premature coronary artery disease. DIAGNOSTICS: - EKG reveals a flutter with RVR. Repeat EKG reveals sinus mechanism - Chest xray negative for acute process. - Laboratory data: WBC 9.2. Hemoglobin 12.0. Platelet count 280. Sodium 137. Potassium 4.9. BUN 18. Creatinine 0.78. Troponin negative x 3. TSH 2.240. - Current home cardiac medications include lisinopril 10 mg daily, atenolol 12.5 mg at night and 25 mg in the morning. REVIEW OF SYSTEMS: At the time of my exam: CONSTITUTIONAL: Denies fever or chills. HEENT: Denies blurred vision, vision changes, or eye pain. Denies hemoptysis CARDIOVASCULAR: Denies chest pain. Denies orthopnea. Denies PND. Denies palpitations RESPIRATORY: Denies shortness of breath. GASTROINTESTINAL: Denies abdominal pain. Denies nausea or vomiting. HEMATOLOGIC: Denies bleeding disorders. GENITOURINARY: Denies any blood in urine. SKIN: Denies pruitis. Denies rash. PHYSICAL EXAM: VITAL SIGNS: Reviewed. GENERAL: Well-developed in no acute distress. HEENT: Head is normocephalic. Pupils are equal, round. Sclerae anicteric. Mucous membranes of the mouth are moist. Neck supple. No JVD or thyromegaly LUNGS: Respirations even and unlabored. Lungs essentially clear to auscultation bilaterally. HEART: Regular rate and rhythm. S1 and S2 heard. ABDOMEN: Soft. Nondistended. Nontender. EXTREMITIES: Normal range of motion. No clubbing or cyanosis. Peripheral pulses intact. No lower extremity edema NEUROLOGIC: Awake and alert. Oriented x 3. ASSESSMENT: Palpitations New onset typical atrial flutter with RVR History of SVT History of hypertension History of hypothyroidism History of diabetes PLAN: Obtain 2D echo to assess cardiac structure and function Discontinue IV heparin and IV cardizem Begin Eliquis 5mg BID. Copay is $40 per case management and patient can use $10 copay card also Continue current dose of atenolol Patient may be discharged home this afternoon from a cardiac standpoint She is to follow-up postdischarge with her primary blender / cook, Dr. Becker Further recommendations pending patient course Nurse practitioner note has been reviewed by physician. Signing provider agrees with the documented findings, assessment, and plan of care documented by [facility] as a scribe. Past Medical History Past Medical History: Supraventricular Tachycardia (SVT) History of Any Multi-Drug Resistant Organisms: None Reported Past Surgical History: Hysterectomy Past Psychological History: No Psychological Hx Reported Smoking Status: Never smoker Past Alcohol Use History: None Reported Past Drug Use History: Marijuana Medications and Allergies Home Medications Medication Instructions Recorded Confirmed Type Apixaban [Eliquis] 5 mg PO BID #60 tab 07/07/23 Rx Levothyroxine Sodium [Synthroid] 125 mcg PO AC-BRKFST 07/07/23 07/07/23 History QUEtiapine [SEROquel] 50 mg PO HS 07/07/23 07/07/23 History atenoloL 12.5 mg PO HS 07/07/23 07/07/23 History atenoloL [Tenormin] 25 mg PO DAILY 07/07/23 07/07/23 History lisinopriL [Prinivil] 10 mg PO DAILY 07/07/23 07/07/23 History metFORMIN HCL 250 mg PO BID 07/07/23 07/07/23 History Allergies Allergy/AdvReac Type Severity Reaction Status Date / Time sulfamethoxazole Allergy Rash/Hives Verified 07/07/23 08:51 [From Bactrim] trimethoprim [From Bactrim] Allergy Rash/Hives Verified 07/07/23 08:51 Physical Exam Vitals: Vital Signs Temp Pulse Pulse Resp BP BP Pulse Ox 07/07/23 02:55 97.9 F 82 16 129/71 98 07/07/23 02:40 70 18 104/66 97 07/07/23 02:00 70 18 103/65 97 07/07/23 01:00 73 18 109/65 97 07/07/23 00:00 76 18 120/87 97 07/06/23 23:01 87 18 132/68 96 07/06/23 20:53 98.4 F 141 H 16 104/73 96 Intake and Output 07/06/23 07/07/23 07/07/23 22:59 06:59 14:59 Other: Weight 133.81 kg 133.81 kg Results 07/07/23 04:28 07/06/23 21:14 Cardiac Enzymes 07/06/23 07/06/23 07/07/23 Range/Units 21:14 21:14 02:58 AST 20 (14-36) U/L Troponin I <0.012 <0.012 (0.000-0.034) ng/mL 07/07/23 Range/Units 04:28 AST (14-36) U/L Troponin I <0.012 (0.000-0.034) ng/mL Coagulation 07/06/23 07/07/23 Range/Units 21:14 04:28 PT 10.7 11.2 (10.0-12.5) sec APTT 21.7 L 24.8 (22.0-30.0) sec CBC 07/06/23 07/07/23 Range/Units 21:14 04:28 WBC 11.6 H 9.2 (3.8-10.6) k/uL RBC 4.47 4.12 (3.80-5.40) m/uL Hgb 13.1 12.0 (11.4-16.0) gm/dL Hct 41.2 38.2 (34.0-46.0) % Plt Count 312 280 (150-450) k/uL Comprehensive Metabolic Panel 07/06/23 Range/Units 21:14 Sodium 137 (137-145) mmol/L Potassium 4.9 (3.5-5.1) mmol/L Chloride 106 (98-107) mmol/L Carbon Dioxide 21 L (22-30) mmol/L BUN 18 H (7-17) mg/dL Creatinine 0.78 (0.52-1.04) mg/dL Glucose 136 H (74-99) mg/dL Calcium 9.2 (8.4-10.2) mg/dL AST 20 (14-36) U/L ALT 20 (4-34) U/L Alkaline Phosphatase 77 (38-126) U/L Total Protein 7.1 (6.3-8.2) g/dL Albumin 4.1 (3.5-5.0) g/dL Current Medications Generic Name Dose Route Start Last Admin Trade Name Marinq PRN Reason Stop Dose Admin Aspirin 325 mg 07/08/23 09:00 Aspirin 325 Mg Tab PO DAILY [facility] Atenolol 25 mg 07/07/23 09:00 Atenolol 25 Mg Tab PO DAILY [facility] Dextrose/Water 25 ml 07/07/23 04:25 Dextrose 50% Syringe 50 Ml IVP PER PROTOCOL PRN Hypoglycemia Protocol Dextrose/Water 50 ml 07/07/23 04:25 Dextrose 50% Syringe 50 Ml IVP PER PROTOCOL PRN Hypoglycemia Protocol Heparin Sodium (Porcine) 0 unit 07/06/23 22:09 Heparin Sodium 1,000 Un/Ml (10ml Vl) IV PER PROTOCOL PRN Low PTT Protocol Heparin Sodium/Sodium Chloride 250 mls @ 10 mls/hr 07/06/23 22:15 07/07/23 02:11 25,000 unit/ Sodium Chloride IV Not Given .Q24H [facility] Protocol 7.4733 UNITS/KG/HR Diltiazem HCl 125 mg/ Sodium 125 mls @ 0 mls/hr 07/06/23 22:15 Chloride IV .Q0M [facility] Protocol Per Protocol Insulin Aspart 0 unit 07/07/23 07:30 07/07/23 06:09 Insulin Aspart (Novolog) 100 Unit/Ml Vial SQ Not Given ACHS [facility] Protocol Levothyroxine Sodium 125 mcg 07/07/23 06:30 07/07/23 06:17 Levothyroxine 125 Mcg Tab PO 125 mcg DAILY@0630 [facility] Administration Lisinopril 10 mg 07/07/23 09:00 Lisinopril 10 Mg Tab PO DAILY [facility] Quetiapine Fumarate 50 mg 07/07/23 21:00 Quetiapine 50 Mg Tab PO HS [facility] Intake and Output 07/06/23 07/07/23 07/07/23 22:59 06:59 14:59 Other: Weight 133.81 kg 133.81 kg 07/07/23 04:28 04/04/24 21:14
[2023-07-07 11:23] LABS: Glucose,Whole Blood 107 mg/dL (70-110)
--- NOTE | 2023-07-07 15:39 | CA ---
Transthoracic Echo Report Name: Karin Grijalva Age: 57 Gender: F : 1965 Exam Date: 07/07/2023 07:55 Exam Location: [place] [facility] Ht (in): 70 Wt (lb): 295 Ordering Physician: Diamante Cervantes MD Attending/Referring Phys: Check Out Cashier Laurel Mustafa RDCS Procedure CPT: Indications: afib Cardiac Hx: Technical Quality: Technically difficult study Contrast 1: Definity Total Dose (mL): 3 Contrast 2: Total Dose (mL): MEASUREMENTS (Male / Female) Normal Values 2D ECHO LV Diastolic Diameter PLAX 4.7 cm 4.2 - 5.9 / 3.9 - 5.3 cm LV Systolic Diameter PLAX 2.7 cm IVS Diastolic Thickness 0.9 cm 0.6 - 1.0 / 0.6 - 0.9 cm LVPW Diastolic Thickness 0.9 cm 0.6 - 1.0 / 0.6 - 0.9 cm LV Relative Wall Thickness 0.4 LVOT Diameter 1.8 cm Aortic Root Diameter 2.9 cm LA Systolic Diameter LX 3.3 cm 3.0 - 4.0 / 2.7 - 3.8 cm DOPPLER AV Peak Velocity 131.0 cm/s AV Peak Gradient 6.9 mmHg AV Mean Velocity 85.7 cm/s AV Mean Gradient 3.3 mmHg AV Velocity Time Integral 28.5 cm LVOT Peak Velocity 109.1 cm/s LVOT Peak Gradient 4.8 mmHg LVOT Velocity Time Integral 25.9 cm LVOT Stroke Volume 63.6 cm??? LVOT Stroke Volume Index 25.8 ml/m??? LVOT Cardiac Index 1617.7 cm???/min???m??? AV Area Cont Eq vti 2.2 cm??? AV Area Cont Eq pk 2.0 cm??? Mitral E Point Velocity 76.7 cm/s Mitral A Point Velocity 56.7 cm/s Mitral E to A Ratio 1.4 MV Deceleration Time 144.0 ms MV E' Velocity 8.2 cm/s Mitral E to MV E' Ratio 9.3 PV Peak Velocity 86.7 cm/s PV Peak Gradient 3.0 mmHg FINDINGS Left Ventricle Left ventricular ejection fraction is estimated at 60-65 %. Normal left ventricular systolic function with no obvious regional wall motion abnormalities. Right Ventricle Normal right ventricular size. Right Atrium Normal right atrial size. Left Atrium Normal left atrial size. Mitral Valve Trace mitral regurgitation. Aortic Valve No aortic valve stenosis or regurgitation. Tricuspid Valve No tricuspid regurgitation. Pulmonic Valve No pulmonic regurgitation. Pericardium No pericardial effusion. Aorta Normal size aortic root and proximal ascending aorta. CONCLUSIONS Left ventricular EF 60-65% Trace mitral regurgitation No tricuspid regurgitation No pericardial effusion Previewed by: Dr. Nathanael Whitt DO (Electronically Signed) Final Date: 07 July 2023 15:38
[2023-07-07 16:13] VITALS: BP 108/56; PULSE 73; RESP 17; TEMP 98
--- NOTE | 2023-07-07 16:14 | P.DS ---
Providers Date of admission: 07/07/23 01:09 Expected date of discharge: 07/07/23 Attending physician: Diamante Cervantes MD Consults: 07/07/23 01:09 Consult Physician Urgent Consulting Provider: [facility] Consult Reason/Comments: new afib rvr Do you want consulting provider notified?: Yes Primary care physician: Esteban Mireles MD Hospital Course: Discharge Diagnosis: Atrial flutter with RVR Type 2 diabetes Hypertension Hypothyroidism History of SVT Hospital Course: 57-year-old female with history of SVT, diabetes, hypertension presented with lightheadedness and dizziness. On initial presentation, patient was tachycardic to 140s, blood pressure stable, on room air. Laboratory workup showed WBC of 11.6, creatinine 0.78, potassium 4.9, magnesium 1.9, troponin negative x 3. EKG showed atrial flutter with RVR. Chest x-ray showed no acute process. Patient spontaneously converted to sinus rhythm without receiving any IV diltiazem. Cardiology evaluated patient, was started on Eliquis and atenolol. Echocardiogram showed LVEF 60 to 65%. Patient being discharged home with close follow-up with outpatient information technology instructor. Patient seen and examined at bedside. Vital signs reviewed and stable. General: Nontoxic, no distress, appears at stated age Derm: Warm, dry Head: Atraumatic, normocephalic, symmetric Eyes: EOMI, no lid lag, anicteric sclera Mouth: No lip lesion, mucus membranes moist Cardiovascular: S1S2 reg, no murmur Lungs: CTA bilateral, no rhonchi, no rales, no accessory muscle use Abdominal: Soft, nontender to palpation, no guarding, no appreciable organomegaly Ext: No gross muscle atrophy, no edema, no contractures Neuro: CN II-XI grossly intact, no focal neuro deficits Psych: Alert, oriented, appropriate affect A total of 33 minutes of time were spent preparing this complex discharge summary. Patient was discharged on at 1614. Patient Condition at Discharge: Stable Plan - Discharge Summary Discharge Rx Participant: Yes New Discharge Prescriptions: New Apixaban [Eliquis] 5 mg PO BID #60 tab Continue QUEtiapine [SEROquel] 50 mg PO HS atenoloL [Tenormin] 25 mg PO DAILY Levothyroxine Sodium [Synthroid] 125 mcg PO AC-BRKFST metFORMIN HCL 250 mg PO BID lisinopriL [Prinivil] 10 mg PO DAILY atenoloL 12.5 mg PO HS Discharge Medication List Apixaban [Eliquis] 5 mg PO BID #60 tab 07/07/23 [Rx] Levothyroxine Sodium [Synthroid] 125 mcg PO AC-BRKFST 07/07/23 [History] QUEtiapine [SEROquel] 50 mg PO HS 07/07/23 [History] atenoloL 12.5 mg PO HS 07/07/23 [History] atenoloL [Tenormin] 25 mg PO DAILY 07/07/23 [History] lisinopriL [Prinivil] 10 mg PO DAILY 07/07/23 [History] metFORMIN HCL 250 mg PO BID 07/07/23 [History] Follow up Appointment(s)/Referral(s): Esteban Mireles MD [Primary Care Provider] - 1-2 days Patient Instructions/Handouts: A-fib (Atrial Fibrillation) (DC) Activity/Diet/Wound Care/Special Instructions: Please see your PCP and information technology instructor. Discharge Disposition: HOME SELF-CARE
[2023-07-07] MEDS ORDERED: QUEtiapine 50 MG TAB PO SCH (21:00)
[2023-07-08] MEDS ORDERED: ASPIRIN 325 MG TAB PO SCH (09:00)
== END 2023-07-07 16:54 | disposition home or self-care (01) ==
LOC: EC 20:51 → 3SCARD 07-07 01:09
PROVIDERS: ADMIT Internal Medicine; ATTEND Internal Medicine
DX: I48.3 Typical atrial flutter (principal); I47.10 Supraventricular tachycardia, unspecified; I10 Essential (primary) hypertension; E03.9 Hypothyroidism, unspecified; E11.9 Type 2 diabetes mellitus without complications; Z79.84 Long term (current) use of oral hypoglycemic drugs; Z79.890 Hormone replacement therapy; Z79.899 Other long term (current) drug therapy; Z88.1 Allergy status to other antibiotic agents; Z88.2 Allergy status to sulfonamides
CPT/HCPCS: 99285; 36415; 93005; 93306; 80053; 83735; 84443; 84484 ×2; 85025 ×2; 85610 ×2; 85730 ×2; 71046; G0378; Q9957